=== PATIENT | male | born 1995 | race Caucasian/White ===

== ENCOUNTER 2023-03-19 16:18 | Outpatient (CLI) | payer OTHER ==
--- NOTE | 2023-03-20 19:22 | Ultrasound Report ---
PROCEDURE: Testicle INDICATIONS: EPIDIDYMO-ORCHITIS TECHNIQUE: Real-time scanning was performed of the scrotum and testicles, with image documentation. Color and p ulse Doppler interrogation was performed of both testicles. COMPARISON: None. FINDINGS: Right testicle measures 4.4 x 1.8 x 3.1 cm stenosis multiple foci of microcalcifications. Overall, th ere is appropriate vascularity noted to. However, there is a 0.9 x 0.6 x 1.0 cm hypoechoic solid mass lesion with surrounding vascularity. The epididymis is heterogenous but appropriate in size and vasc ularity Left testicles measures 3.9 x 1.9 x 2.7 cm and is homogeneous with appropriate vascularity. Additiona l microcalcifications noted as well. Left epididymis contains a 0.6 x 0.8 cm simple cyst. Appropriate interval vascularity. Left-sided varicocele noted. IMPRESSION: 1. Focal hypervascular nodule in the right testicle. Consider follow-up MRI for further characterizat ion Reviewed by: Harish Gutierrez MD on 03/20/2023 6:21 PM EBER Approved by: Harish Gutierrez MD on 03/20/2023 6:21 PM EBER Station ID: [id number]
== END 2023-03-19 16:19 | disposition home or self-care (01) ==
LOC: DI 16:18
PROVIDERS: ATTEND Family Medicine
DX: N45.3 Epididymo-orchitis (principal); N50.89 Other specified disorders of the male genital organs

== ENCOUNTER 2023-03-31 15:40 | Outpatient (CLI) | payer OTHER ==
[~2023-03-31 15:40] MED LIST: GADOBUTROL 10 MMOL/10 ML VIAL IVP ONE; GADOBUTROL 10 MMOL/10 ML VIAL ONE
[2023-04-01] MEDS ORDERED: GADOBUTROL 10 MMOL/10 ML VIAL IVP ONE (07:00)
--- NOTE | 2023-04-01 10:43 | MRI Report ---
PROCEDURE: PELVIS W/WO INDICATIONS: EPIDIDYMO-ORCHITIS TECHNIQUE: With attention to the testicles in particular, MRI images were obtained with and without c ontrast using multiple sequences and multiple planes. COMPARISON: Ultrasound 03/19/2023 Contrast: IV contrast was used. FINDINGS: Image quality: Good Lower abdomen: Unremarkable. No obstruction. No abscess or pathologic ascites. Bladder: Unremarkable. Reproductive organs: A solitary hypoechoic nodule was noted on ultrasound. On MRI, this measures 0.7 x 0.8 x 0.8 cm (02/27, 08/24). Disc is T2 hypointense compared to the rest of the testicular parenchyma . No other mass lesions are seen. Possible left epididymal head cyst. Rectum: Unremarkable Vessels and lymph nodes: No aneurysmal vessel. No pathologic adenopathy by size criteria. Please note , if the testicular nodule is a malignancy, the first milly station is the upper retroperitoneum, whi ch is out of the [id number] of this imaging study. Pelvic wall: Unremarkable Bones: No acute or suspicious osseous finding. IMPRESSION: Intratesticular T2 hypointense 0.8 cm nodule corresponding to ultrasound findings. Differential inclu lesli a small malignancy. Urologic consultation advised. Reviewed by: Dejon Ford MD on 04/01/2023 10:42 AM PDT Approved by: Dejon Ford MD on 04/01/2023 10:42 AM PDT Station ID: [id number]
== END 2023-03-31 15:41 | disposition home or self-care (01) ==
LOC: DI 15:40
PROVIDERS: ATTEND Physician Assistant Medical
DX: N50.9 Disorder of male genital organs, unspecified (principal)
CPT/HCPCS: 72197; A9585

== ENCOUNTER 2023-04-16 15:13 | Outpatient (CLI) | payer OTHER | END 2023-04-16 15:14 | disposition home or self-care (01) | LOC: LAB 15:13 | PROVIDERS: ATTEND Urology | DX: N50.9 Disorder of male genital organs, unspecified (principal) | CPT/HCPCS: 36415; 82105; 83615; 84702 ==